=== PATIENT | female | born 1955 | race Caucasian/White ===

== ENCOUNTER → 2016-08-06 | Outpatient (CLI) | payer OTHER ==
[~2016-08-06] MED LIST: ATV1 PO; CLX20
--- NOTE | 2016-08-06 12:53 | DIAGNOSTIC IMAGING REPORT ---
RIGHT HIP UNILATERAL MIN 2 VIEWS CLINICAL HISTORY: Right hip pain status post fall. COMPARISON: Pelvis radiograph March 01, 2014. FINDINGS: Alignment of the right hip is anatomic. There is no acute fracture. There is no evidence for avascular necrosis. There is minimal joint space narrowing with mild osteophytosis of the right hip. IMPRESSION: 1. No acute fracture or dislocation of the right hip. 2. Mild osteoarthritis of the right hip. Electronically signed by: Braxton Gonzalez M.D. 08/06/2016 12:51 PM Dictated Date/Time: 08/06/2016 12:51 PM
== END | disposition home or self-care (01) ==
LOC: C.RDSM 10:47
PROVIDERS: ATTEND Family Medicine
DX: M25.551 Pain in right hip (principal)

== ENCOUNTER 2023-02-07 05:06 | Observation (INO) ==
--- NOTE | 2023-01-15 16:14 | PAT Medication Instructions ---
Medication Instructions Date of Service January 15, 2023 Home Medications citalopram 40 mg tablet 40 mg PO QAM lamotrigine 150 mg tablet (Lamictal) 150 mg PO QAM levothyroxine 50 mcg tablet 50 mcg PO QAM amlodipine 2.5 mg tablet 2.5 mg PO QAM Take morning of surgery With a small sip of water, OTHERWISE NOTHING TO EAT OR DRINK AFTER MIDNIGHT: citalopram 40 mg tablet 40 mg PO QAM lamotrigine 150 mg tablet (Lamictal) 150 mg PO QAM levothyroxine 50 mcg tablet 50 mcg PO QAM amlodipine 2.5 mg tablet 2.5 mg PO QAM Other Notes If you have any questions please call us at [phone] or [phone] or [phone] or [phone]
--- NOTE | 2023-01-23 14:08 | Anesthesiology Consultation ---
Date of Service January 23, 2023 Assessment & Plan (1) Encounter for pre-operative examination: - Case discussed in detail with Dr. Frias who advised patient is acceptable to proceed with surgery including as planned outpatient joint. - cardiology 01/16/23 [facility]: "...Preoperative cardiovascular evaluation, planned hip replacement...Coronary artery disease Nonspecific EKG changes leading to exercise stress echo was intermediate for inducible ischemia there was ischemic EKG changes with greater than [address] segment elevations in the inferior and anterior leads at peak rate, 03/24/2021. Mild Nonobstructive CAD per cardiac catheterization at [facility] on 03/29/2021 medical management recommended...no cardiac complaints currently. Denies chest pains, shortness of breath, tachy palpitations, syncope. Still remains very active but being limited due to pain in left hip...Preoperative cardiovascular evaluation prior to planned hip replacement: No cardiac contraindications to proceeding. Blood pressure is well managed. Has chronically abnormal EKG but unchanged from prior tracings. LV function preserved by prior echo, no valvular disease. Functional capacity above 5 Mets with no history of angina or congestive heart failure..." - Outpatient joint pathway: Per surgeon and patient, plan for outpatient joint program. Upon review of chart- patient is an acceptable candidate for Same Day Joint Program from anesthesia perspective pending perioperative course. Pending patient is motivated, has good support and surgeon's office completes Same Day Joint Program preop requirements- patient may proceed with outpatient [facility]. Chart Review Chart Review: Acceptable Risk for Surgery and Patient seen in Pre Admission Testing Teaching & Discussion Pre-Anesthesia Teaching/Discussion Notes: Instructed NPO after midnight before surgery, except medications with 15 cc of water. Medication instructions provided according to the PAT guidelines. History Surgery Operation Date: 02/07/23 07:00 Proposed Procedures p OP: Left Total Hip Arthroplasty - Jai Gray MD Height/Weight Height: 5 ft 2.5 in Weight: 78.018 kg Allergies Allergy/AdvReac Type Severity Reaction Status Date / Time pseudoephedrine Allergy Intermediate rash Verified 01/25/23 15:25 [From Sudafed] Sulfa (Sulfonamide Allergy Mild Rash, Unverified 01/15/23 12:48 Antibiotics) febrile shellfish derived Allergy Anaphylaxis Verified 01/15/23 12:48 red dye Allergy Intermediate rash Uncoded 01/25/23 15:25 Medications Home Medications Medication Instructions Recorded Confirmed Last Taken citalopram 40 mg tablet 40 mg PO QAM 03/29/21 01/15/23 Unknown lamotrigine 150 mg tablet 150 mg PO QAM 03/29/21 01/15/23 Unknown (Lamictal) levothyroxine 50 mcg tablet 50 mcg PO QAM 03/29/21 01/15/23 Unknown amlodipine 2.5 mg tablet 2.5 mg PO QAM 01/15/23 01/15/23 Unknown Past Medical History Medical History (Updated 01/25/23 @ 15:28 by Elis Walker PA-C) Bipolar disorder CAD (coronary artery disease) mild nonobstructive CAD Depression with anxiety Former smoker Hearing deficit BL MCKEON History of blood transfusion 7 y/o during tonsillectomy HTN (hypertension) controlled, stable per pt Hypothyroidism Otosclerosis Recovering alcoholic quit drinking 6 years ago Slow to wake up after anesthesia denies extended intubation or re-intubation Patient denies h/o stroke, seizures, heart attack, heart failure, DM, or blood clots. Exercise / Class Metabolic Activity II 4-5 Yardwork/Stairs/Walk up hill (denies chest discomfort or shortness of breath with 1 FOS) Past Surgical History Surgical History History of cardiac catheterization approx 2 years ago at [place] - no stents History of colonoscopy History of ear surgery History of sinus surgery History of toe surgery cyst removal great toe left History of tonsillectomy History of tubal ligation Past Anesthesia History Other (patient slow to wake, sister with PONV) History of PONV No Hx of PONV and No Hx of Motion Sickness Social History Smoking Status: Former smoker Do You Dip or Chew Tobacco: No Smoking End Date: 3 years ago Hx Alcohol Use: No (recovering alcoholic) Hx Substance Use: No substance use type: does not use Review of Systems Patient denies chest pain, shortness of breath, dyspnea on exertion, snoring, witnessed apneas, reflux, fever, chills, cough, wheezing, or palpitations. Physical Exam Vital Signs Vitals BP 105/69 P 81 TEMP 99 SP02 96% on RA RESP 17 Physical Patient resting comfortably in chair in NAD, alert and oriented, responding appropriately throughout visit Full cervical extension range of motion without pain TMD 3.5 finger breadths Mallampati Score 2 Dentition: multiple caps/crowns, denies chipped or loose teeth, implants or bridges Lungs: normal respiratory effort. Good air movement, clear throughout to auscultation, no adventitious breath sounds Cardiac: regular rate and rhythm, no murmurs noted Carotid arteries: negative bruit bilat Lab Results Anesthesia Preop Results Results Anesthesia Widget: WBC 6.86 K/ul (4.8-10.8) 01/23/23 Hgb 12.9 g/dl (12.0-16.0) 01/23/23 Hct 38.7 % (37.0-47.0) 01/23/23 Plt 299 K/uL (130-400) 01/23/23 Na 139 mmol/L (136-145) 01/23/23 K 4.6 mmol/L (3.5-5.1) 01/23/23 Cl 103 mmol/L (98-107) 01/23/23 CO2 31 mmol/L (21-32) 01/23/23 BUN 18 mg/dl (6-23) 01/23/23 Creat 0.75 mg/dl (0.6-1.2) 01/23/23 Glucose Level 90 mg/dl (70-99(Fasting)) 01/23/23 PT 10.9 Seconds (9.0-12.0) 01/23/23 PTT 28.5 Seconds (21.0-31.0) 01/23/23 INR 1.0 (0.9-1.1) 01/23/23 Urine Color Yellow 01/23/23 Urine Appearance Clear (Clear) 01/23/23 Urine pH 7.5 (4.5-7.5) 01/23/23 Urine Specific [place] 1.011 (1.000-1.030) 01/23/23 Urine Protein Negative (Negative) 01/23/23 Urine Glucose (UA) Negative (Negative) 01/23/23 Urine Ketones Negative (Negative) 01/23/23 Urine Blood Negative (Negative) 01/23/23 Urine Nitrite Negative (Negative) 01/23/23 Urine Bilirubin Negative (Negative) 01/23/23 Urine Urobilinogen Negative (Negative) 01/23/23 Urine Leukocyte Esterase Negative (Negative) 01/23/23 Blood Type O Positive 08/02/23 Antibody Screen NEGATIVE 01/23/23 Testing Electrocardiogram Date: 01/16/23 NSR, rate 76 bpm Septal infarct, age undetermined T wave abnormality, consider anterior ischemia No significant change vs 03/22/21 EKG Stress Test Date: 03/24/21 Exercise MPHR 86% METS 8.6 Indeterminate for inducible ischemia Ischemic EKG changes with greater than [address] segment elevations in the inferior and anterior leads at peak HR No inducible wall motion abnormalities on imaging EF 55-60% Grade II diastolic dysfunction No significant valvular pathology Cardiac Catheterization Date: 03/29/21 Coronary angiography: Catheters long 6 [place]an glide radial sheath, 5 [place] Left main: Left main is of normal caliber with mild physiologic taper at its origin and no calcification or obstruction Left anterior descending: Type II vessel which gives rise to 2 small diagonal branches in its proximal and 1 moderate size diagonal branch in its midportion. The apical segment of the left anterior descending is thin in caliber. The vessel has mild luminal irregularities Ramus intermedius: Large long trifurcating vessel without obstruction Left circumflex: Moderate size vessel, nondominant. It gives rise to a single obtuse marginal and single posterior lateral branch. Vessels are thin in calib er but without obstruction Right coronary artery: Moderately large dominant vessel. It gives rise to a sinoatrial branch at its origin, and two small right ventricular branches in its midportion. At the AV groove it gives rise to a long posterior descending artery along the AV groove a small first posterior ventricular branch and a long terminal posterior ventricular branch. Within the right coronary artery there is mild luminal irregularities with a focal 30% narrowing at the acute margin with mild ectasia Other Testing CT chest 04/05/22 Negative, benign appearance or behavior No new/unknown potentially significant incidental findings
--- NOTE | 2023-01-24 11:45 | History & Physical Report ---
Date of Service January 24, 2023 Assessment & Plan (1) Osteoarthritis of left hip: Plan: PRE-OP Diagnosis: Left hip osteoarthritis Planned Procedure: Left total hip arthroplasty Plan: Patient is scheduled to undergo this procedure at the [facility] following the outpatient total joint pathway with Dr. Gray on January. Risks and complications of the procedure such as: Infection, bleeding, pain, scarring, nerve blood vessel damage, weakness, wound problems, stiffness, incomplete relief of symptoms, hardware failure, hardware loosening, wear, fracture, tendon or ligament injury, dislocation, leg length inequality, blood clots, Embolism, heart attack, stroke and were explained to the patient at her visit today. Informed consent to perform the procedure was obtained. Patient also understands risks of proceeding with surgical intervention during the COVID-19 pandemic. Currently she is asymptomatic and has not been in contact with anyone positive for the virus recently. Patient has an appointment to meet with anesthesia later this afternoon and while there will obtain CBC with differential, complete metabolic panel, PT/INR, blood type and screen, urinalysis, urine culture and sensitivity, and a nasal culture for MRSA. Her EKG is up-to-date and we have received the report from her custom wood stair builder at [facility]. Patient will also need preoperative medical clearance from their custom wood stair builder Dr. Kent and primary care provider Raquel Brower. Patient states that she plans on doing in-home physical therapy for the first 1 to 2 weeks postoperatively. Patient states that she will most likely elect to do outpatient physical therapy at our PT clinic. Patient will need a walker, raised toilet seat, shower chair and a hip kit. During today's visit we reviewed the total hip packet as well as precautions. I provided paperwork to obtain a handicap placard for their vehicle. We discussed lectures offered by [facility] in regards to joint replacement surgery via Zoom. Patient was given prescriptions during today's visit for oxycodone, Zofran and Keflex. I recommended that she purchase 81 mg aspirin tablets to use twice daily for blood clot prevention. I would also like her to purchase Senokot and extra strength Tylenol. Patient will be scheduled for 2-week postoperative follow-up visit with myself on February 22. At that visit we will Provide the patient with an order for outpatient physical therapy and rehab protocol. Patient verbalizes understanding of all information provided during today's visit. She thanks for the care that she received. If she has questions or concerns that should arise prior to her surgery, she will contact clinic. This chart was completed utilizing [employer] voice recognition software. Grammatical errors, random word insertions, pronoun errors, and in complete sentences are an occasional consequence of the system. Any questions or concerns about the content, text, or information contained within the body of this dictation should be addressed directly to the physician for clarification. History of Present Illness Chief Complaint: Chief Complaint: Left hip pain Primary Care Provider: Yokasta Batista DO History of Present Illness (including history relevant to procedure): This 67-year-old female presents today for her preoperative history and physical. Patient complains of a approximate 6-year history of persistent right hip pain that initially waxed and waned but has now become constant. Patient has failed conservative management with physical therapy the use of nonsteroidal agents strength Tylenol. She states the pain is localized to her groin area with severe limitations with range of motion. She states it is starting to affect her ability to ambulate and play with her grandchildren. Review Of Systems: A 12 point review of systems is performed and is unremarkable except for those things stated in the HPI and past medical history. Past Medical History: Problems: Arthritis of left hip Thyroid disease Left hamstring muscle strain Hip pain Knee pain Anxiety Bipolar disorder Procedure History Procedure Procedure Date Comments foot Cardiac catheterization Tubal ligation Sinus surgery Bilateral stapedectomy - left Allergies and Sensitivities: shellfish sulfADIAZINE Current Home Meds: (Last Updated 01/23 13:49) amLODIPine (amLODIPine 2.5 mg oral tablet) TAKE ONE TABLET BY MOUTH EVERY MORNING cephalexin (cephalexin 500 mg oral capsule) 500 mg PO tid post op infection prophylaxis citalopram (citalopram 40 mg oral tablet) 40 mg PO Daily laMOTRIGine (lamotrigine 150 mg oral tablet) 150 mg PO Daily levothyroxine (levothyroxine 25 mcg (0.025 mg) oral tablet) 25 mcg PO Daily melatonin (melatonin 3 mg oral tablet) 3 mg PO qhs PRN: Insomnia naproxen (naproxen 500 mg oral tablet) 500 mg PO bid PRN: as needed for pain ondansetron (Zofran 4 mg oral tablet) 4 mg PO q8h post op nausea oxyCODONE (oxyCODONE 5 mg oral tablet) 5 mg PO q4h PRN: as needed for pain post op pain control Initial Wt: 01/23 78.0 kg 172 lb Allergies Allergy/AdvReac Type Severity Reaction Status Date / Time Sulfa (Sulfonamide Allergy Mild Rash, Unverified 01/15/23 12:48 Antibiotics) febrile shellfish derived Allergy Anaphylaxis Verified 01/15/23 12:48 Home Medications Medication Instructions Recorded Confirmed Type citalopram 40 mg tablet 40 mg PO QAM 03/29/21 01/15/23 History lamotrigine 150 mg tablet 150 mg PO QAM 03/29/21 01/15/23 History (Lamictal) levothyroxine 50 mcg tablet 50 mcg PO QAM 03/29/21 01/15/23 History amlodipine 2.5 mg tablet 2.5 mg PO QAM 01/15/23 01/15/23 History Past Med/Surg History Medical History Bipolar disorder Depression with anxiety Former smoker Hearing deficit BL MCKEON History of blood transfusion 7 y/o during tonsillectomy HTN (hypertension) controlled, stable per pt Hypothyroidism Otosclerosis Recovering alcoholic quit drinking 6 years ago Slow to wake up after anesthesia denies extended intubation or re-intubation Surgical History History of cardiac catheterization approx 2 years ago at [place] - no stents History of colonoscopy History of ear surgery History of sinus surgery History of toe surgery cyst removal great toe left History of tonsillectomy History of tubal ligation Social History Smoking Status: Former smoker Second Hand Exposure: No; Do You Dip or Chew Tobacco: No; Hx Alcohol Use: No (recovering alcoholic) Hx Substance Use: No Preferred Language: Vietnamese Communication Ability: Effective Clinical Audiologist Required: No Beliefs That Will Affect Care: None Current Living Situation: Spouse Feels Safe at Home: Yes Assistive Devices: Cane, Glasses and Hearing Aid - Bilateral Review of Systems All systems reviewed & are unremarkable except as noted in Subjective Physical Exam Physical Exam: Physical Exam: (relevant to the procedure, including heart and lung evaluation) General: Alert and oriented x3 with proper grooming and hygiene Eyes: Pupils are equal react to light with accommodation. Extraocular movements are intact Throat: Posterior pharynx is clear with absence of edema, erythema or exudate. Dentition is appropriate Cardiac: Regular rate and rhythm with no murmurs or gallops appreciated Lungs: Clear to auscultation throughout with no wheezing, rales or rhonchi Abdomen: Mildly obese, nondistended, nontender with NABS Extremities: Left hip; flexion is limited to 110 degrees with pain. Logroll testing causes referred pain to the groin. Stinchfield test positive. Patient has tenderness to palpation in the groin area. Internal rotation is limited to 0 degrees and external rotation to 55 degrees. She is neurovascular intact in the left lower extremity. Neuro: Cranial nerves II through XII are intact with no motor or sensory deficit Skin: Normal in appearance with no open skin areas or discharge Results & Data Diagnostic Findings Studies of (relevant to the procedure): AP pelvis, false profile and cross table lateral views of the pelvis with evidence of b/l hip osteoarthritis, left worst than right
[2023-02-07] MEDS ORDERED: FAMOTIDINE 20 MG TAB PO SCH (06:00)
[2023-02-07] MEDS ORDERED: TRANEXAMIC ACID 1,000 MG **IV Pre-op IV SCH (06:00)
[2023-02-07] MEDS ORDERED: LR 500ML BOLUS, THEN 15ML/HR IV SCH (06:00)
[2023-02-07] MEDS ORDERED: ceFAZolin 2000MG 2,000 MG/15 ML SYR IV SCH (06:00)
[2023-02-07] MEDS ORDERED: TRANEXAMIC ACID 1,000 MG **IV Intra-op IV SCH (06:00)
[2023-02-07] MEDS ORDERED: dexAMETHasone 4 MG TAB PO SCH (06:00)
[2023-02-07] MEDS ORDERED: traMADol HCL 50 MG TABLET PO SCH (06:00)
[2023-02-07] MEDS ORDERED: Scopolamine 1 MG TDSY TD SCH (06:00)
[2023-02-07] MEDS ORDERED: ACETAMINOPHEN 500 MG TAB PO SCH (06:00)
[2023-02-07] MEDS ORDERED: ROPIVACAINE 0.5% HCL/PF 150 MG, BUPIVACAINE 0.75% MPF 20 ML, EPINEPHrine 0.15 MG, Ketor... INFIL SCH (06:00)
[2023-02-07] MEDS ORDERED: LR 60ML/HR IV SCH (06:00)
[2023-02-07] MEDS ORDERED: MEPIVACAINE HCL 1.5% 30 ML VIAL ONE (06:22)
--- NOTE | 2023-02-07 06:36 | History & Physical Bridge Note ---
Date of Service February 07, 2023 History & Physical Bridge Note I have examined the patient, reviewed the History & Physical and in the interval since the performance of the History & Physical I have noted the following changes of clinical significance: no changes noted
[2023-02-07] MEDS ORDERED: ORTHO JOINT ANESTHETIC ONE (06:40)
[2023-02-07] MEDS ORDERED: MIDAZOLAM HCL 1 MG/ML 2ML VIAL ONE (06:45)
[2023-02-07] MEDS ORDERED: PROPOFOL IV EMULSION 10 MG/ML 20 ML VIAL IV ONE ×2 (06:53→08:32)
[2023-02-07] MEDS ORDERED: BUPIVACAINE 0.5 % 5 MG/1 ML PF 10ML VIAL ONE (07:08)
[2023-02-07] MEDS ORDERED: ATROPINE SULFATE 0.1 MG/ML 10ML SYR IV PRN (07:32)
[2023-02-07] MEDS ORDERED: ePHEDrine sulfate 50 MG/ML AMP IV PRN (07:32)
[2023-02-07] MEDS ORDERED: ONDANSETRON INJ 2 MG/ML 2 ML VIAL IV PRN ×2 (07:32→08:54)
--- NOTE | 2023-02-07 08:52 | Operative Report ---
Post Operative Report Pre & Post Diagnosis Operation Date: 02/07/23 07:00 Pre-Op Diagnosis: Left Hip Degenerative Joint Disease Post-Op Diagnosis: Left Hip Degenerative Joint Disease I identified the patient and participated in the time-out.: Yes Procedure Operation Date: 02/07/23 07:00 Actual Procedures p Left Total Hip Arthroplasty(Left) - Jai Gray MD Surgeon Jai Gray MD Poultry Farm Worker GERSON Milton PA-C. No resident or fellow was available to assist. Estimated Blood Loss 100 Findings Consistent with Post-Op Diagnosis Specimens Right femoral head Anesthesia Type Spinal MAC Complications none Disposition Disposition: Recovery Room Indications 68-year-old female with left hip arthritis refractory to conservative management. X-rays demonstrate severe joint space narrowing and marginal osteophyte formation. I do long discussion with her about the risks and benefits of surgery, alternatives to surgery, and expected outcomes. After reviewing all these she elected to proceed with surgery. All questions were answered. Informed consent was signed. Description of Procedure Patient was identified in the preoperative holding area where the surgical site, Left hip, was marked. A spinal anesthetic was placed, then the patient was brought back to the main operating room, placed in the operating table and moved into the lateral decubitus position. Axillary roll was placed. All bony prominences were padded. Perioperative antibiotics and tranexamic acid 1 gram IV were administered. Operative extremity was prepped and draped in the normal sterile fashion. Prior to incision a multidisciplinary timeout was called. All in the room were in agreement. We began by making an approximately 20 cm long incision for a posterior approach to the hip. We dissected down through subcutaneous tissues to the level of the fascia. The fascia was incised in line with the incision. Charnley bow was placed. Fatty tissue was reflected posteriorly off the back of the greater trochanter to expose the piriformis and short external rotators of the hip. The piriformis and short external rotators were dissected off the posterior aspect of the hip. A box cut was made in the capsule. Inferior hip capsule was released off the femur. The femoral head was dislocated. The femoral neck cut was made at our preoperative template. The acetabulum was then exposed. The labrum was sharply excised. Contents of the cotyloid fossa were removed with electrocautery. We then began reaming at a size 8 mm less than our preoperative template. We reamed up by [address] the way up to a size 50 mm cup. This gave us good bleeding cancellus bone circumferentially. The acetabulum was then irrigated out and dried. The real Milburn Gription cup was then impacted down into position with 45 degrees of lateral opening and 25 degrees of anteversion. A single cancellous bone screw was placed up into the ilium. Excellent fixation was obtained. A trial liner for a 32 mm femoral head was then placed. Next we turned our attention to the femur. The lateral neck was removed with a box osteotome. Intramedullary guide was used followed by the lateralizing reamer. We then reamed up to a size 4 [place] stem. We then broached all the way up to a size 4. We began trialing with a standard offset neck and a +5 head. Hip was reduced. Leg lengths were symmetric. The hip was stable in extension and external rotation, and stable in the sleeper position. At 90 degrees of hip flexion the hip could be internally rotated 45 degrees before levering out of the cup. I was very happy with the stability exam. Therefore the hip was dislocated and the femoral trial was removed. The acetabulum was re-exposed, and the trial liner was removed. An Altrx polyethylene liner for a 32 mm femoral head was then impacted into the shell. The locking mechanism was checked to ensure that it had engaged which it had. The femur was re-exposed. The femoral canal was irrigated and dried. The real size [] offset [place] femoral stem was opened up. This was impacted down into position. It sat at the same level as the femoral trial. Therefore the 32 mm ceramic femoral head with +5 mm offset was opened up and gently impacted down onto the trunnion. The hip was atraumatically reduced. Another 1 gram of IV tranexamic acid was started prior to closure. The wound was irrigated out with sterile Betadine solution. The periarticular injection cocktail was then placed. The short external rotators, piriformis, and posterior capsule were repaired through drill holes in the greater trochanter using #2 Vicryl. The fascia was run with a looped #1 PDS. The subcutaneous layer was closed with #1 PDS. The dermal layer was closed with 2-0 Vicryl. Zip line was used for the skin followed by a Silverlon dressing. A compressive dressing was then placed. The patient was then rolled supine. Leg lengths were rechecked and were symmetric. An abduction pillow was placed. Sedation was lifted and the patient was transferred to the recovery room in stable condition. Summary of implants: Depuy Milburn Gription Acetabular Shell Sector Cup, 50 mm outer diameter Milburn Cancellous bone screw, 6.5 x 40 mm Walls hole eliminator Milburn Altrx Polyethylene Acetabular Liner, Neutral, with a 32 mm inner diameter DePuy [place] Femoral stem with [place], 12/14 taper, size 4 standard offset 32 mm ceramic femoral head with +5 offset Postoperative course: Patient will be admitted overnight from the recovery room. Patient will be weightbearing as tolerated with posterior hip precautions. Aspirin for DVT prophylaxis I attest to the content of the Intraoperative Record and any orders documented therein. Any exceptions are noted below.
[2023-02-07] MEDS ORDERED: MAGNESIUM HYDROXIDE SUSP 30 ML UDC PO PRN (08:54)
[2023-02-07] MEDS ORDERED: METOCLOPRAMIDE HCL INJ 5 MG/ML 2 ML VIAL IV PRN (08:54)
[2023-02-07] MEDS ORDERED: NALOXONE HCL 0.4 MG/1 ML VIAL/CARP IV PRN (08:54)
[2023-02-07] MEDS ORDERED: diphenhydrAMINE 50 MG/ML VIAL IV PRN (08:54)
[2023-02-07] MEDS ORDERED: bisacodyL 10 MG SUPP PR PRN (08:54)
[2023-02-07] MEDS ORDERED: ALUMINUM/MAGNESIUM SUSP 30 ML UDC PO PRN (08:54)
--- NOTE | 2023-02-07 08:54 | Operative Report ---
Post Operative Report Pre & Post Diagnosis Operation Date: 02/07/23 07:00 Pre-Op Diagnosis: Left Hip Degenerative Joint Disease Post-Op Diagnosis: Left Hip Degenerative Joint Disease I identified the patient and participated in the time-out.: Yes Procedure Operation Date: 02/07/23 07:00 Actual Procedures p Left Total Hip Arthroplasty(Left) - Jai Gray MD Surgeon Jai Gray MD Website Project Manager GERSON Milton PA-C. No resident or fellow was available to assist. Estimated Blood Loss 100 Findings Consistent with Post-Op Diagnosis Specimens femoral head Description of Procedure I was present during the entire case assisting with positioning, prepping, draping, wound retraction, wound closure, dressing and abduction pillow plac ement. No fellow present. Please see Dr. Gray procedure note for specifics of the case. I attest to the content of the Intraoperative Record and any orders documented therein. Any exceptions are noted below.
[2023-02-07] MEDS: HYDROmorphone INJ 1 MG/ML SYRINGE IV PRN ×3 (09:13→09:36)
--- NOTE | 2023-02-07 09:31 | XRay Report ---
AP PELVIS History: Left total hip arthroplasty. Degenerative arthritis. Postop. FINDINGS: The patient is status post a left total hip arthroplasty. The hardware is intact. No fractu re or dislocation. Moderate to severe osteoarthritis noted within the right hip. IMPRESSION: Left total hip arthroplasty. No evidence for hardware complication. ACT 112: Negative or not required by law. Electronically signed by: Marco Churchill M.D. 02/07/2023 9:30 AM
[2023-02-07] MEDS: SODIUM CHLORIDE 0.9% 1000ML 1,000 ML IV SCH ×3 (11:41→21:52)
[2023-02-07] MEDS: DOCUSATE SODIUM 100 MG CAP PO SCH ×2 (11:43→19:28)
[2023-02-07] MEDS: MULTIVITAMIN TAB PO SCH (11:43)
[2023-02-07] MEDS: amLODIPine BESYLATE 5 MG TAB PO SCH (11:52)
[2023-02-07] MEDS: LEVOTHYROXINE SODIUM 50 MCG TABLET PO SCH (11:52)
[2023-02-07] MEDS: CITALOPRAM 40 MG TAB PO SCH (11:52)
[2023-02-07] MEDS: lamoTRIgine 100 MG TAB PO SCH (11:52)
[2023-02-07] MEDS: KETOROLAC TROMETHAMINE 15 MG/ML VIAL IV SCH ×2 (11:56→17:17)
--- NOTE | 2023-02-07 12:34 | Anesthesiology Progress Note ---
Date of Service February 07, 2023 Anesthesia Post Procedure Vital Signs Vital Signs: Temp Pulse Pulse Resp BP Pulse Ox O2 Del Method 02/07/23 12:10 36.6 C 64 16 113/74 99 Nasal Cannula 02/07/23 11:39 36.6 C 60 16 93/64 L 99 Nasal Cannula 02/07/23 11:10 36.4 C L 56 L 18 92/56 L 97 Nasal Cannula 02/07/23 11:00 49 L 19 102/59 L 98 Nasal Cannula 02/07/23 10:50 57 L 20 107/59 L 98 Nasal Cannula 02/07/23 10:40 58 L 13 101/63 97 Nasal Cannula 02/07/23 10:30 36.4 C L 64 12 95/61 L 97 Nasal Cannula 02/07/23 10:20 64 18 103/58 L 98 Nasal Cannula 02/07/23 10:10 67 15 87/67 L 96 Nasal Cannula 02/07/23 10:00 60 12 88/59 L 97 Nasal Cannula 02/07/23 09:50 36.5 C 55 L 14 97/62 L 99 Nasal Cannula 02/07/23 09:40 61 13 96/55 L 99 Nasal Cannula 02/07/23 09:30 53 L 16 114/61 97 Nasal Cannula 02/07/23 09:20 51 L 16 101/57 L 98 Oxymask 02/07/23 09:10 54 L 13 98/59 L 100 Oxymask 02/07/23 09:02 36.2 C L 57 L 12 92/58 L 100 Oxymask 02/07/23 05:43 36.6 C 64 18 109/69 95 Room Air O2 Flow Rate 02/07/23 12:10 2 02/07/23 11:39 2 02/07/23 11:10 2 02/07/23 11:00 2 02/07/23 10:50 2 02/07/23 10:40 2 02/07/23 10:30 2 02/07/23 10:20 2 02/07/23 10:10 2 02/07/23 10:00 2 02/07/23 09:50 2 02/07/23 09:40 2 02/07/23 09:30 2 02/07/23 09:20 2 02/07/23 09:10 4 02/07/23 09:02 6 02/07/23 05:43 Pain Intensity Left Hip: Pain Intensity: 3 Posterior Head: Pain Intensity: 2 Left Neck: Pain Intensity: 2 Transfer of Care Handoff Completed per policy Notes Mental Status: alert / awake / arousable and participated in evaluation Nausea / Vomiting: adequately controlled Pain: adequately controlled Airway Patency, RR, SpO2: stable & adequate BP & HR: stable & adequate Hydration State: stable & adequate Neuraxial Anesthesia: was administered and sensory block is resolving Anesthetic Complications: no major complications apparent and Pt Satisfied with anesthetic care
[2023-02-07] MEDS: ACETAMINOPHEN 500 MG TAB PO SCH (13:13)
[2023-02-07] MEDS: oxyCODONE HCL IR 5 MG TAB (IMMEDIATE RELEASE) PO PRN ×2 (13:48→19:26)
[2023-02-07] MEDS: Scopolamine CHECK PATCH PLACEMENT SCH (14:49)
[2023-02-07] MEDS: ceFAZolin 2000MG 2,000 MG/15 ML SYR IV SCH (14:49)
[2023-02-07] MEDS ORDERED: TRANEXAMIC ACID / 0.7% NACL 1,000 MG/100 ML BAG IV SCH (15:00)
[2023-02-07] MEDS: MoRPHine SULFATE 4 MG/ML 1 ML CARP\\VIAL IV PRN ×2 (16:37→22:09)
--- NOTE | 2023-02-07 17:12 | Orthopedic Progress Note ---
Date of Service February 07, 2023 Assessment & Plan (1) Status post total hip replacement, left: Plan: Patient is doing well. I reassured her that the amount of pain she is experiencing is normal after hip replacement. Additional order was given to nursing staff for IV morphine as needed. Otherwise, routine postoperative care. PT OT tomorrow. My physician placement assistant will see her in the morning. plan on discharge home tomorrow after physical therapy. Admission and Anticipated Discharge Date Admission Date: February 07, 2023 Subjective Patient seen on afternoon rounds. She reports she was able to get out of bed and walk to the bathroom but she had increased pain since that time. Denies fevers chills chest pain shortness of breath. She has been able to tolerate an oral diet. Physical Exam Physical Exam: On exam her dressing is clean dry and intact. Her abduction pillow is in place. She is able to wiggle her toes and dorsi and plantarflex her ankle. She reports sensation intact to light touch in the dorsal and plantar aspects of the left foot. Results & Data Vital Signs (Past 12 Hours) Vital Signs Temp Pulse Pulse Resp BP Pulse Ox O2 Del Method 02/07/23 11:30 Nasal Cannula 02/07/23 14:10 36.7 C 60 16 99/64 L 95 Room Air 02/07/23 13:10 36.6 C 60 16 95/60 L 99 Nasal Cannula 02/07/23 12:10 36.6 C 64 16 113/74 99 Nasal Cannula 02/07/23 11:39 36.6 C 60 16 93/64 L 99 Nasal Cannula 02/07/23 11:10 36.4 C L 56 L 18 92/56 L 97 Nasal Cannula 02/07/23 11:00 49 L 19 102/59 L 98 Nasal Cannula 02/07/23 10:50 57 L 20 107/59 L 98 Nasal Cannula 02/07/23 10:40 58 L 13 101/63 97 Nasal Cannula 02/07/23 10:30 36.4 C L 64 12 95/61 L 97 Nasal Cannula 02/07/23 10:20 64 18 103/58 L 98 Nasal Cannula 02/07/23 10:10 67 15 87/67 L 96 Nasal Cannula 02/07/23 10:00 60 12 88/59 L 97 Nasal Cannula 02/07/23 09:50 36.5 C 55 L 14 97/62 L 99 Nasal Cannula 02/07/23 09:40 61 13 96/55 L 99 Nasal Cannula 02/07/23 09:30 53 L 16 114/61 97 Nasal Cannula 02/07/23 09:20 51 L 16 101/57 L 98 Oxymask 02/07/23 09:10 54 L 13 98/59 L 100 Oxymask 02/07/23 09:02 36.2 C L 57 L 12 92/58 L 100 Oxymask 02/07/23 05:43 36.6 C 64 18 109/69 95 Room Air O2 Flow Rate 02/07/23 11:30 2 02/07/23 14:10 02/07/23 13:10 1 02/07/23 12:10 2 02/07/23 11:39 2 02/07/23 11:10 2 02/07/23 11:00 2 02/07/23 10:50 2 02/07/23 10:40 2 02/07/23 10:30 2 02/07/23 10:20 2 02/07/23 10:10 2 02/07/23 10:00 2 02/07/23 09:50 2 02/07/23 09:40 2 02/07/23 09:30 2 02/07/23 09:20 2 02/07/23 09:10 4 02/07/23 09:02 6 02/07/23 05:43 Diagnostic Findings I reviewed her postop x-rays that show hardware in good position with no evidence of complication.
[2023-02-07] MEDS ORDERED: SENNA 8.6 MG TAB PO SCH (21:00)
[2023-02-08] MEDS: ceFAZolin 2000MG 2,000 MG/15 ML SYR IV SCH (00:05)
[2023-02-08] MEDS: ACETAMINOPHEN 500 MG TAB PO SCH ×2 (00:05→05:32)
[2023-02-08] MEDS: Scopolamine CHECK PATCH PLACEMENT SCH ×2 (00:06→07:56)
[2023-02-08] MEDS: KETOROLAC TROMETHAMINE 15 MG/ML VIAL IV SCH ×2 (00:08→05:33)
[2023-02-08] MEDS: oxyCODONE HCL IR 5 MG TAB (IMMEDIATE RELEASE) PO PRN ×2 (05:31→09:29)
[2023-02-08] MEDS: LEVOTHYROXINE SODIUM 50 MCG TABLET PO SCH (05:34)
[2023-02-08 07:03] LABS: Basophils # (auto) 0.01 K/uL (0-0.2); Basophils % (auto) 0.1 %; Eosinophils # (auto) 0.02 K/uL (0-0.50); Eosinophils % (auto) 0.2 %; Hematocrit (blood only) 27.6 % (37.0-47.0); Hemoglobin 9.2 g/dl (12.0-16.0); Immature Granulocytes # (auto) 0.03 K/uL (0.01-0.20); Immature Granulocytes % (auto) 0.4 %; Lymphocytes # (auto) 0.94 K/uL (1.2-3.4); Lymphocytes % (auto) 11.6 %; Mean Corpuscular Hemoglobin 27.9 pg (25.0-34.0); Mean Corpuscular Hgb Conc 33.3 g/dL (32.0-36.0); Mean Corpuscular Volume 83.6 fL (80.0-100.0); Mean Platelet Volume 10.5 fL (9.4-12.4); Monocytes # (auto) 0.56 K/uL (0.11-0.59); Monocytes % (auto) 6.9 %; Neutrophils # (auto) 6.55 K/uL (1.40-6.50); Neutrophils % (auto) 80.8 %; Platelet Count 212 K/uL (130-400); RDW Coefficient of Variation 14.8 % (11.5-14.5); RDW Standard Deviation 45.5 fL (36.4-46.3); White Blood Count 8.11 K/ul (4.8-10.8)
[2023-02-08 07:57] LABS: BUN Creatinine Ratio 27.6 (10-20); Calcium 8.7 mg/dl (8.6-10.3); Creatinine Clr Calc Pharmacy 71.5 ml/min; Est GFR (African American) 94.1 ml/min; Est GFR (Non-African American) 81.2 ml/min; Potassium 4.4 mmol/L (3.5-5.1)
[2023-02-08] MEDS: lamoTRIgine 100 MG TAB PO SCH (07:57)
[2023-02-08] MEDS: CITALOPRAM 40 MG TAB PO SCH (07:57)
[2023-02-08] MEDS: MULTIVITAMIN TAB PO SCH (07:57)
[2023-02-08] MEDS: DOCUSATE SODIUM 100 MG CAP PO SCH (07:58)
[2023-02-08] MEDS: amLODIPine BESYLATE 5 MG TAB PO SCH (07:59)
[2023-02-08] MEDS ORDERED: dexAMETHasone 4 MG TAB PO SCH (08:00)
[2023-02-08] MEDS ORDERED: ASPIRIN 81 MG ECTAB PO SCH (09:00)
--- NOTE | 2023-02-08 09:11 | Orthopedic Progress Note ---
Date of Service February 08, 2023 Assessment & Plan (1) Status post total hip replacement, left: Plan: Total hip precautions reviewed Weightbearing as tolerated with walker assistance Abduction pillow use x6 weeks Ice with easy wrap Pain control with p.o. medication DVT prophylaxis with PER stockings and aspirin Plan is to discharge home today with in-home physical therapy for the first 2 weeks postoperatively Keep Silverlon dressing in place until follow-up Follow-up at [facility] orthopedics as previously scheduled With questions contact our clinic at [phone] Admission and Anticipated Discharge Date Admission Date: February 07, 2023 Subjective This 68-year-old female is day 1 status post left total hip arthroplasty. Patient states she is doing very well. She states that her pain is well controlled with the prescription oxycodone. She states that she does have her postoperative medications at home. She was initially scheduled to begin outpatient total joint but decided to stay overnight prior to surgery. She states she has been able to get out of bed and use the restroom without issues. She states that she is a little nauseous this morning and was given some IV antinausea medication which was effective. Currently she denies chest pain, shortness of breath, fever, chills, sweats, vomiting, diarrhea or difficulty voiding. She also has no complaint of numbness or tingling in the left lower extremity. Review of Systems Review of Systems: All systems reviewed & are unremarkable except as noted in Subjective Physical Exam Physical Exam: Left hip: Outer dressing was removed. Silverlon is clean dry and intact and left in place. Patient is able to perform an active straight leg raise test. She is able to actively dorsi and plantarflex her foot without issue. She has no pain with logroll testing. She experiences no pain with light passive hip flexion near 90 degrees as well as with light passive internal and external hip rotation. Her quad strength is 3+ out of 5. She is neurovascular intact in the left lower extremity. Results & Data Vital Signs (Past 12 Hours) Vital Signs Temp Pulse Resp BP Pulse Ox O2 Del Method 02/08/23 07:21 36.5 C 64 16 102/64 94 Room Air 02/08/23 02:34 36.6 C 61 18 91/54 L 90 Room Air 02/07/23 23:23 36.4 C L 53 L 16 99/64 L 94 Room Air Diagnostic Findings Laboratory Results WBC 8.11 K/ul (4.8-10.8) 02/08/23 06:24 RBC 3.30 M/uL (4.20-5.40) L 02/08/23 06:24 Hgb 9.2 g/dl (12.0-16.0) L 02/08/23 06:24 Hct 27.6 % (37.0-47.0) L 02/08/23 06:24 MCV 83.6 fL (80.0-100.0) 02/08/23 06:24 MCH 27.9 pg (25.0-34.0) 02/08/23 06:24 MCHC 33.3 g/dL (32.0-36.0) 02/08/23 06:24 RDW Std Deviation 45.5 fL (36.4-46.3) 02/08/23 06:24 RDW Coeff of Renetta 14.8 % (11.5-14.5) H 02/08/23 06:24 Plt Count 212 K/uL (130-400) 02/08/23 06:24 MPV 10.5 fL (9.4-12.4) 02/08/23 06:24 Immature Gran % (Auto) 0.4 % 02/08/23 06:24 Neut % (Auto) 80.8 % 02/08/23 06:24 Lymph % (Auto) 11.6 % 02/08/23 06:24 [place] % (Auto) 6.9 % 02/08/23 06:24 Eos % (Auto) 0.2 % 02/08/23 06:24 Baso % (Auto) 0.1 % 02/08/23 06:24 Neut # (Auto) 6.55 K/uL (1.40-6.50) H 02/08/23 06:24 Lymph # (Auto) 0.94 K/uL (1.2-3.4) L 02/08/23 06:24 [place] # (Auto) 0.56 K/uL (0.11-0.59) 02/08/23 06:24 Eos # (Auto) 0.02 K/uL (0-0.50) 02/08/23 06:24 Baso # (Auto) 0.01 K/uL (0-0.2) 08/18/23 06:24 Immature Gran # (Auto) 0.03 K/uL (0.01-0.20) 02/08/23 06:24 Sodium 139 mmol/L (136-145) 02/08/23 06:24 Potassium 4.4 mmol/L (3.5-5.1) 02/08/23 06:24 Chloride 107 mmol/L (98-107) 02/08/23 06:24 Carbon Dioxide 29 mmol/L (21-32) 02/08/23 06:24 Anion Gap 3 (3-11) 02/08/23 06:24 BUN 21 mg/dl (6-23) 02/08/23 06:24 Creatinine 0.76 mg/dl (0.6-1.2) 02/08/23 06:24 Est Cr Clr Drug Dosing 71.5 ml/min 02/08/23 06:24 Est GFR ( Amer) 94.1 ml/min 02/08/23 06:24 Est GFR (Non-Af Amer) 81.2 ml/min 02/08/23 06:24 BUN/Creatinine Ratio 27.6 (10-20) H 02/08/23 06:24 Glucose 119 mg/dl (70-99(Fasting)) H 02/08/23 06:24 Calcium 8.7 mg/dl (8.6-10.3) 02/08/23 06:24 Impressions Pelvis X-Ray 02/07/23 08:54 AP PELVIS History: Left total hip arthroplasty. Degenerative arthritis. Postop. FINDINGS: The patient is status post a left total hip arthroplasty. The hardware is intact. No fracture or dislocation. Moderate to severe osteoarthritis noted within the right hip. IMPRESSION: Left total hip arthroplasty. No evidence for hardware complication. ACT 112: Negative or not required by law. Electronically signed by: Marco Churchill M.D. 02/07/2023 9:30 AM
--- NOTE | 2023-02-08 09:16 | Discharge Summary ---
Date of Service February 08, 2023 Admission HPI Per Admitting Provider History of Present Illness (including history relevant to procedure): This 67-year-old female presents today for her preoperative history and physical. Patient complains of a approximate 6-year history of persistent right hip pain that initially waxed and waned but has now become constant. Patient has failed conservative management with physical therapy the use of nonsteroidal agents strength Tylenol. She states the pain is localized to her groin area with severe limitations with range of motion. She states it is starting to affect her ability to ambulate and play with her grandchildren. Review Of Systems: A 12 point review of systems is performed and is unremarkable except for those things stated in the HPI and past medical history. Past Medical History: Problems: Arthritis of left hip Thyroid disease Left hamstring muscle strain Hip pain Knee pain Anxiety Bipolar disorder Procedure History Procedure Procedure Date Comments foot Cardiac catheterization Tubal ligation Sinus surgery Bilateral stapedectomy - left Allergies and Sensitivities: shellfish sulfADIAZINE Current Home Meds: (Last Updated 01/23 13:49) amLODIPine (amLODIPine 2.5 mg oral tablet) TAKE ONE TABLET BY MOUTH EVERY MORNING cephalexin (cephalexin 500 mg oral capsule) 500 mg PO tid post op infection prophylaxis citalopram (citalopram 40 mg oral tablet) 40 mg PO Daily laMOTRIGine (lamotrigine 150 mg oral tablet) 150 mg PO Daily levothyroxine (levothyroxine 25 mcg (0.025 mg) oral tablet) 25 mcg PO Daily melatonin (melatonin 3 mg oral tablet) 3 mg PO qhs PRN: Insomnia naproxen (naproxen 500 mg oral tablet) 500 mg PO bid PRN: as needed for pain ondansetron (Zofran 4 mg oral tablet) 4 mg PO q8h post op nausea oxyCODONE (oxyCODONE 5 mg oral tablet) 5 mg PO q4h PRN: as needed for pain post op pain control Initial Wt: 01/23 78.0 kg 172 lb Admission Exam Per Admitting Provider Physical Exam: (relevant to the procedure, including heart and lung evaluation) General: Alert and oriented x3 with proper grooming and hygiene Eyes: Pupils are equal react to light with accommodation. Extraocular movements are intact Throat: Posterior pharynx is clear with absence of edema, erythema or exudate. Dentition is appropriate Cardiac: Regular rate and rhythm with no murmurs or gallops appreciated Lungs: Clear to auscultation throughout with no wheezing, rales or rhonchi Abdomen: Mildly obese, nondistended, nontender with NABS Extremities: Left hip; flexion is limited to 110 degrees with pain. Logroll testing causes referred pain to the groin. Stinchfield test positive. Patient has tenderness to palpation in the groin area. Internal rotation is limited to 0 degrees and external rotation to 55 degrees. She is neurovascular intact in the left lower extremity. Neuro: Cranial nerves II through XII are intact with no motor or sensory deficit Skin: Normal in appearance with no open skin areas or discharge Principal Diagnosis Left Hip Osteoarthritis Discharge Exam Left hip: Outer dressing was removed. Silverlon is clean dry and intact and left in place. Patient is able to perform an active straight leg raise test. She is able to actively dorsi and plantarflex her foot without issue. She has no pain with logroll testing. She experiences no pain with light passive hip flexion near 90 degrees as well as with light passive internal and external hip rotation. Her quad strength is 3+ out of 5. She is neurovascular intact in the left lower extremity. Discharge Data Allergies Allergy/AdvReac Type Severity Reaction Status Date / Time red dye Allergy Rash Verified 02/07/23 05:41 shellfish derived Allergy Rash Verified 02/07/23 05:41 Sulfa (Sulfonamide Allergy Rash Verified 02/07/23 05:41 Antibiotics) Procedures Performed Operation Date: 02/07/23 07:00 Actual Procedures p Left Total Hip Arthroplasty(Left) - Jai Gray MD Hospital Course (1) Status post total hip replacement, left: Patient had an uneventful overnight stay following total hip replacement. She is anxious to be discharged home later today. She is set up with in-home physical therapy for the first 2 weeks postoperatively. Total hip precautions reviewed Weightbearing as tolerated with walker assistance Abduction pillow use x6 weeks Ice with easy wrap Pain control with p.o. medication DVT prophylaxis with PER stockings and aspirin Plan is to discharge home today with in-home physical therapy for the first 2 weeks postoperatively Keep Silverlon dressing in place until follow-up Follow-up at [facility] orth[facility] as previously scheduled With questions contact our clinic at [phone] Total Time Total Time Spent Total Time Spent (In Minutes): 20 mins Discharge Plan Discharge Items Patient Disposition: Home - Home Health Services Reason For Visit: Left Hip Degenerative Joint Disease Discharge Diagnosis: Left Hip DJD Activity: As commented below Lifting: None Bathing: Keep incision dry Bathing Comment: may shower tomorrow Sexual Activity: Wait until after follow-up appointment Exercise/Sports: Wait until after follow-up appointment Driving/Machine Use: No driving until cleared by energy specialist Weightbearing: Left weightbearing Weightbearing Comment: as tolerated with walker assistance Non-emergency contact: Surgeon Call non-emergency contact if: you have any medication questions, your pain is not controlled, your temperature is above 101.5, your wound has increased drainage and your wound pain has increased Follow-up/Referrals: Solis Milton PA-C [Physician Options Trader] - 02/22/23 1:30 pm Yokasta Batista DO [Outside Practitioners] - Diet: Regular Ambulatory Orders: Prothrombin Time INR (Routine) Timeframe: 20230123 Location: Determined by Patient Ordered By: Elis Gregory Attending Provider Instructions: Post-operative Instructions Dear Patient and Family/Friends, Before you are discharged from the hospital, it is important to know what to expect when you get home after surgery. To that end, we have created this sheet of discharge instructions which covers many commonly asked questions. Make sure you go through this sheet in its entirety with your nurse before you are discharged. Please note that we will go over the specifics of your surgery and recovery when you return for your first post-operative visit. Sincerely, Dr. Gray Medications 1. Oxycodone 5 mg tablet: Take 1-2 tabs every 4-6 hours as needed for pain control. 2. Cephalexin 500 mg tablet: Take 1 tablet 3 times daily for the first 5 days postoperatively 3. Aspirin 81 mg tablet: Take 1 tab twice daily for the first 30 days postoperatively 4. Naproxen 500 mg tablet: Take 1 tablet twice daily for the first 30 days postoperatively 5. Zofran 4 mg tablet: Take 1 tablet every 8 hours as needed for nausea relief Pain Expect to be in a fair amount of pain after surgery. Remember, our goal is not to eliminate your pain, but to make it tolerable. It is a good idea to stay ahead of your pain by taking the medications you were prescribed once you get home. Typically, the pain starts improving 3-7 days after surgery. You should start weaning off the narcotic pain medication (oxycodone, hydrocodone, hydromorphone, morphine) as soon as your pain improves. Please call our office if your pain is not adequately controlled. Ice Ice your operative site at least 5 times a day for 15-30 minutes at a time. Make sure you have a thin cloth between the ice or cooling unit and your skin to prevent garibay bite. This is especially important if you received a nerve block. Continue icing your operative site for the first 5-7 days after surgery, then as needed. Diet/Nausea/Vomiting Start by drinking clear liquids and eating crackers. If you can tolerate this, then you may resume your normal diet. If you feel nauseated or vomit, take Zofran/ondansetron (if prescribed). Please call our office if you have intractable nausea or vomiting, or, if after hours, you may go to the Emergency Room for help. Constipation Constipation is a common side effect of narcotic pain medication. If you have not had a bowel movement within 2 days after surgery, we recommend purchasing an over the counter laxative such as Milk of Magnesia, Dulcolax, or Miralax from a local pharmacy, and taking it as instructed. Call our clinic if any questions. Nerve block The anesthesia team sometimes places a nerve block to help with post-operative pain control. This results in significant numbness and inability to move the extremity. The nerve block usually wears off in 8-12 hours, but sometimes can last up to 24 hours. Please call our office if you are still unable to move your extremity after 24 hours, unless you received a pain pump to take home. Nerve blocks typically wear off quickly, so start taking pain medication as soon as you start feeling soreness near your surgical site. Weight bearing and Range of Motion. Do not bear any weight through your operative extremity immediately after surgery. If you had upper extremity surgery, do not lift anything with that arm. If you are in a knee brace, keep it locked in place until your follow-up. We will discuss your weight bearing, range of motion, and lifting restrictions in detail at your first post-operative appointment. Continuous Passive Motion (CPM) Machine If you were prescribed a CPM machine, it will start after your first post- operative appointment, at which time we will give you instructions on the range of motion settings and duration of treatment Physical therapy You will be given a prescription for physical therapy or occupational therapy at your first post-operative appointment. Typically, patients start therapy within 1 week of surgery Wound care and showering We will inspect your wound at your first post-operative visit, and may do a dr mcdonald change at that time. Most patients will be in a water-proof dressing that is removed 14 days after surgery. It is normal to see some dried blood on the dressing. Do not remove your dressing, paper strips or sutures yourself unless you are given permission. Showering is allowed the day after surgery. Do not scrub or remove any dressings. The wound should not be submerged underwater (i.e. in a bathtub or pool) until 4 weeks after surgery PER stockings If you were given white stockings, these are to be worn at all times except to shower (on both legs) for the first 2 weeks after surgery. Driving You may not drive while taking narcotic pain medication or while in a cast, splint, sling or brace. You, the patient, need to make the final determination about when you are safe to drive, however, the earliest you may consider driving after surgery is below: Hand/Wrist/Elbow Surgery: 3 days Shoulder Surgery: 2 weeks Hip,/Knee/Ankle Surgery: 4 weeks Fracture repair: 6 weeks Return to Work Your return to work depends on what surgery was done and what type of work you do. Please bring any paperwork your employer needs completed to your first post-operative visit. Also, bring a description of your job duties, as this helps us to understand what risks you may face at work. Travel Avoid long distance travel (greater than 1 hour) in airplanes and cars for the first 6 weeks after surgery. If you must travel, you need to have a Doppler ultrasound done before you travel to rule out a blood clot in your legs. Follow-up You should have a follow-up appointment already scheduled 1-2 days after surgery. If not, please contact our office to make this appointment before you leave the hospital. When to call the office It is normal to have swelling and bruising in the limb that was operated on. This will improve with time. It is also normal to have fevers for the first 2 days after surgery. Reasons you should call your doctor include: Uncontrolled pain; Nausea, vomiting, or constipation that does not improve with medication; Fevers over 101.5, chills, sweats; Drainage or bleeding from the wound; Foul odor; Spreading areas of redness; Any other concerns Pending Studies at Discharge: No Stand-Alone Forms: [facility] Medications and DC Order Prescriptions: Continued lamotrigine [Lamictal] 150 mg Tablet 150 mg PO QAM citalopram 40 mg Tablet 40 mg PO QAM levothyroxine 50 mcg Tablet 50 mcg PO QAM amlodipine 2.5 mg tablet 2.5 mg PO QAM Admission Data Admit Date/Time: 02/07/23 08:54 Attending Provider: Jai Gray Admit Provider: Jai Gray Primary Care Provider: Supriya Brower Other Providers: [facility]
== END 2023-02-08 12:02 | disposition home health service (06) ==
LOC: ASU 05:06 → 3E 05:06

== ENCOUNTER 2023-05-30 07:07 | Observation (INO) ==
--- NOTE | 2023-05-08 16:10 | History & Physical Report ---
Date of Service May 08, 2023 Assessment & Plan (1) Osteoarthritis of right hip: Plan: PRE-OP Diagnosis: Right hip osteoarthritis Planned Procedure: Right total hip arthroplasty Plan: Patient is scheduled to undergo this procedure at the [facility] with a 23-hour observation admission with Dr. Gray on May. Risks and complications of the procedure such as: Infection, bleeding, pain, scarring, nerve blood vessel damage, weakness, wound problems, stiffness, incomplete relief of symptoms, hardware failure, hardware loosening, wear, fracture, tendon or ligament injury, dislocation, leg length inequality, blood clots, Embolism, heart attack, stroke and were explained to the patient at her visit today. Informed consent to perform the procedure was obtained. Patient also understands risks of proceeding with surgical intervention during the COVID-19 pandemic. Currently she is asymptomatic and has not been in contact with anyone positive for the virus recently. Need to meet with anesthesia due to her recent left total hip arthroplasty. However, we will need an updated CBC with differential (performed at [facility] on May 06), complete metabolic panel, PT/INR, blood type and screen, urinalysis, urine culture and sensitivity, and a nasal culture for MRSA. Her EKG is up-to-date. Patient will also need preoperative medical clearance from their primary care provider. She was seen yesterday. A clearance form was also sent to her computer graphic designer Dr. Kent and she has been cleared and a note is in her chart. Patient states that she plans on doing in-home physical therapy for the first 1 to 2 weeks postoperatively with [facility]. Patient states that she will most likely elect to do outpatient physical therapy at our PT clinic. Patient has a walker, raised toilet seat, shower chair and a hip kit. During today's visit we reviewed the total hip packet as well as precautions. We discussed discharge planning from the hospital. I advised the patient that upon discharge from hospital we will prescribe a narcotic pain medication and anti-inflammatory. Patient will also be on an 81 mg aspirin twice daily for blood clot prevention. Patient will be scheduled for 2-week postoperative follow-up visit with myself on June 12. At that visit we will Provide the patient with an order for outpatient physical therapy and rehab protocol. This chart was completed utilizing [employer] voice recognition software. Grammatical errors, random word insertions, pronoun errors, and in complete sentences are an occasional consequence of the system. Any questions or concerns about the content, text, or information contained within the body of this dictation should be addressed directly to the physician for clarification. History of Present Illness Chief Complaint: Chief Complaint: Right hip pain Primary Care Provider: Supriya Brower MD History of Present Illness (including history relevant to procedure): This 68-year-old female presents to the clinic today for her preoperative history and physical. Patient states that she had her left hip replaced in January which she is doing well. However she has noticed an increase in pain of her right hip which is now affecting her ability to ambulate. She has tried to work on this and physical therapy but states that it seems to exacerbate the pain. She has also tried the use of oral nonsteroidal agents without any significant relief of her pain. She is elected to proceed with surgical intervention at this time. Review Of Systems: A 12 point review of systems is performed and is unremarkable except for those things stated in the HPI and past medical history. Past Medical History: Problems: Pre-op exam Arthritis of left hip Thyroid disease Left hamstring muscle strain Hip pain Knee pain Anxiety/depression Procedure History Procedure Procedure Date Comments foot Left total hip arthroplasty Tubal ligation Stapedectomy bilateral ears Sinus surgery - left Allergies and Sensitivities: shellfish sulfADIAZINE Current Home Meds: (Last Updated 05/07 14:33) amLODIPine (amLODIPine 2.5 mg oral tablet) TAKE ONE TABLET BY MOUTH EVERY MORNING citalopram (citalopram 40 mg oral tablet) 40 mg PO Daily ezetimibe (ezetimibe 10 mg oral tablet) laMOTRIGine (lamotrigine 150 mg oral tablet) 150 mg PO Daily levothyroxine (levothyroxine 25 mcg (0.025 mg) oral tablet) 25 mcg PO Daily naproxen (naproxen 500 mg oral tablet) 500 mg PO bid PRN: as needed for pain Initial Wt: 05/07 74.2 kg 163 lb Allergies Allergy/AdvReac Type Severity Reaction Status Date / Time red dye Allergy Rash Verified 02/07/23 05:41 shellfish derived Allergy Rash Verified 02/07/23 05:41 Sulfa (Sulfonamide Allergy Rash Verified 02/07/23 05:41 Antibiotics) Home Medications Medication Instructions Recorded Confirmed Type citalopram 40 mg tablet 40 mg PO QAM 03/29/21 02/07/23 History lamotrigine 150 mg tablet 150 mg PO QAM 03/29/21 02/07/23 History (Lamictal) levothyroxine 50 mcg tablet 50 mcg PO QAM 03/29/21 02/07/23 History amlodipine 2.5 mg tablet 2.5 mg PO QAM 01/15/23 02/07/23 History Past Med/Surg History Medical History CAD (coronary artery disease) mild nonobstructive CAD History of blood transfusion 7 y/o during tonsillectomy Slow to wake up after anesthesia denies extended intubation or re-intubation Recovering alcoholic quit drinking 6 years ago Hypothyroidism Hearing deficit BL [place] Otosclerosis Depression with anxiety Bipolar disorder HTN (hypertension) controlled, stable per pt Former smoker Surgical History History of tonsillectomy History of toe surgery cyst removal great toe left History of tubal ligation History of sinus surgery History of colonoscopy History of ear surgery History of cardiac catheterization approx 2 years ago at [place] - no stents Social History Smoking Status: Former smoker Second Hand Exposure: No; Do You Dip or Chew Tobacco: No; Hx Alcohol Use: No (recovering alcoholic) Hx Substance Use: No Preferred Language: Honduran Communication Ability: Effective Pneumatic Riveter Required: No Beliefs That Will Affect Care: None Current Living Situation: Spouse Feels Safe at Home: Yes Assistive Devices: Cane, Glasses and Hearing Aid - Bilateral Review of Systems All systems reviewed & are unremarkable except as noted in Subjective Physical Exam Physical Exam: Physical Exam: (relevant to the procedure, including heart and lung evaluation) General: Alert and oriented x3 with proper grooming and hygiene Eyes: Pupils are equal and reactive to light with accommodation. Extraocular movements are intact Throat: Posterior oropharynx clear with absence of edema, erythema or exudate. Dentition is appropriate Cardiac: Regular rate and rhythm with no murmurs or gallops appreciated Lungs: Clear to auscultation throughout with no wheezing, rales or rhonchi Abdomen: Mildly obese, nondistended, nontender with NABS Extremities: Right hip; flexion is limited to 90 degrees, internal rotation to 0 degrees and external rotation to 50 degrees. Patient has a positive straight leg raise test positive Stinchfield test and positive logroll test. She ex periences tenderness to palpation in the groin area. She is neurovascular intact. Neuro: Cranial nerves II through XII are intact no motor or sensory deficit Skin: Normal in appearance with no open skin areas or discharge Results & Data Diagnostic Findings Studies (relevant to the procedure): As of the patient's right hip show end- stage osteoarthritis with [id number] contact and osteophyte formation
--- NOTE | 2023-05-22 13:33 | Anesthesiology Consultation ---
Date of Service May 22, 2023 Assessment & Plan (1) Encounter for pre-operative examination: - Infectious disease screening: Per assessment on 05/22/23: No known infectious disease contacts. Spoke with patient via phone for clarification 05/22/23- she has chronic, mild rhinorrhea r/t allergies (unchanged from baseline). Patient denies any other infectious-related symptoms/feeling well. Patient advised to contact PAT/surgeon if development of symptoms outside of her baseline prior to surgery. - S/P Left SAVANNAH (02/07/23): SAB at [facility]. No issues noted per post-op anesthesia progress note. - Cardiology note (03/26/23): "No cardiac contraindication to surgery" - PCP note (05/06/23): "Yes" medically cleared for surgery - Outpatient joint assessment: Pt currently scheduled for inpatient pathway. If surgeon requests review for outpatient joint pathway, patient is an acceptable candidate for outpatient joint program from anesthesia standpoint pending surgeon's office assessment that patient is motivated, has good support and completes Same Day Joint Program preop requirements. Chart Review Chart Review: Acceptable Risk for Surgery and Patient NOT seen in Pre Admission Testing History Surgery Operation Date: 05/30/23 08:15 Proposed Procedures p Right Total Hip Arthroplasty - Jai Gray MD Height/Weight Height: 5 ft 3.5 in Weight: 78.018 kg Allergies Allergy/AdvReac Type Severity Reaction Status Date / Time shellfish derived Allergy Severe Swelling Verified 05/22/23 09:48 of Lip/Tongue/Throat Sulfa (Sulfonamide Allergy Unknown Rash Verified 05/22/23 09:48 Antibiotics) red dye Allergy Rash Verified 05/22/23 09:48 Medications Home Medications Medication Instructions Recorded Confirmed Last Taken citalopram 40 mg tablet 40 mg PO QAM 03/29/21 05/22/23 02/07/23 04:30 lamotrigine 150 mg tablet 150 mg PO QAM 03/29/21 05/22/23 02/07/23 04:30 (Lamictal) levothyroxine 50 mcg tablet 50 mcg PO QAM 03/29/21 05/22/23 02/07/23 04:30 amlodipine 2.5 mg tablet 2.5 mg PO QAM 01/15/23 05/22/23 02/07/23 04:30 aspirin 81 mg chewable tablet 81 mg PO BID 05/22/23 05/22/23 Unknown ezetimibe 10 mg tablet 10 mg PO QAM 05/22/23 05/22/23 Unknown multivitamin 1 tab PO QAM 05/22/23 05/22/23 Unknown Past Medical History Medical History Mild emphysema History of COVID-19 x2, 2021, mild symptoms CAD (coronary artery disease) mild nonobstructive CAD History of blood transfusion 7 y/o during tonsillectomy Hypothyroidism Hearing deficit [place] Otosclerosis Depression with anxiety Bipolar disorder HTN (hypertension) Past Surgical History Surgical History Slow to wake up after anesthesia + fatigue after colonoscopy History of total hip arthroplasty left 01/2023 History of tonsillectomy History of toe surgery cyst removal great toe left History of tubal ligation History of sinus surgery History of colonoscopy History of ear surgery History of cardiac catheterization 2020 ([place])- no stents Social History Smoking Status: Former smoker Do You Dip or Chew Tobacco: No Smoking End Date: 07/2019 Hx Alcohol Use: No (Recovering alcoholic per records- Quit drinking 6 years ago) Hx Substance Use: No substance use type: does not use Testing Laboratory Results 05/06/23 WBC 4.68 H/H 13.2/41.1 PLATELETS 288 TSH 3.72 05/13/23 SODIUM 139 POTASSIUM 4.1 CHLORIDE 103 CO2 31 BUN 19 CREATININE 0.74 GLUCOSE 93 PT 10.9 INR 1.0 UA negative Electrocardiogram Date: 01/16/23 NSR, rate 76 bpm Septal infarct, age undetermined T wave abnormality, consider anterior ischemia No significant change vs 03/22/21 EKG Stress Test Date: 03/24/21 Exercise MPHR 86% METS 8.6 Indeterminate for inducible ischemia Ischemic EKG changes with greater than [address] segment elevations in the inferior and anterior leads at peak HR No inducible wall motion abnormalities on imaging EF 55-60% Grade II diastolic dysfunction No significant valvular pathology Cardiac Catheterization Date: 03/29/21 Coronary angiography: Catheters long 6 Algerian glide radial sheath, 5 Algerian [place] Left main: Left main is of normal caliber with mild physiologic taper at its origin and no calcification or obstruction Left anterior descending: Type II vessel which gives rise to 2 small diagonal branches in its proximal and 1 moderate size diagonal branch in its midportion. The apical segment of the left anterior descending is thin in caliber. The vessel has mild luminal irregularities Ramus intermedius: Large long trifurcating vessel without obstruction Left circumflex: Moderate size vessel, nondominant. It gives rise to a single obtuse marginal and single posterior lateral branch. Vessels are thin in caliber but without obstruction Right coronary artery: Moderately large dominant vessel. It gives rise to a sinoatrial branch at its origin, and two small right ventricular branches in its midportion. At the AV groove it gives rise to a long posterior descending artery along the AV groove a small first posterior ventricular branch and a long terminal posterior ventricular branch. Within the right coronary artery there is mild luminal irregularities with a focal 30% narrowing at the acute margin with mild ectasia Other Testing CT chest Date: 04/09/22 Mild emphysema. Mild biapical pleural-parenchymal scarring. Mild coronary art cj calcification. Small hiatal hernia. No suspicious lung nodule identified. 2 mm nodule in the right lower lobe.
[~2023-05-30 07:07] MED LIST changes: +ACETAMINOPHEN 500 MG TAB PO SCH; -ATV1 PO; +BUPIVACAINE 0.5 % 5 MG/1 ML PF 10ML VIAL ONE; -CLX20; +CeleBREX 200 MG CAP PO SCH; +FAMOTIDINE 20 MG TAB PO SCH; +LR 500ML BOLUS, THEN 15ML/HR IV SCH; +LR 60ML/HR IV SCH; +ROPIVACAINE 0.5% HCL/PF 150 MG, BUPIVACAINE 0.75% MPF 20 ML, EPINEPHrine 0.15 MG, Ketor... INFIL SCH; +Scopolamine 1 MG TDSY TD SCH; +TRANEXAMIC ACID 1,000 MG **IV Intra-op IV SCH; +TRANEXAMIC ACID 1,000 MG **IV Pre-op IV SCH; +ceFAZolin 2000MG 2,000 MG/15 ML SYR IV SCH; +dexAMETHasone 4 MG TAB PO SCH; +traMADol HCL 50 MG TABLET PO SCH
[2023-05-30] MEDS ORDERED: fentaNYL citrate PF 100 MCG/2 ML VIAL IV PRN (07:36)
[2023-05-30] MEDS ORDERED: ePHEDrine sulfate 50 MG/ML AMP IV PRN (07:36)
[2023-05-30] MEDS ORDERED: ATROPINE SULFATE 0.1 MG/ML 10ML SYR IV PRN (07:36)
[2023-05-30] MEDS ORDERED: ONDANSETRON INJ 2 MG/ML 2 ML VIAL IV PRN ×2 (07:36→10:18)
[2023-05-30] MEDS ORDERED: MIDAZOLAM HCL 1 MG/ML 2ML VIAL ONE (07:39)
[2023-05-30] MEDS ORDERED: ONDANSETRON INJ 2 MG/ML 2 ML VIAL ONE (07:39)
[2023-05-30] MEDS ORDERED: LIDOCAINE 2% 2 ML VIAL/AMP(20MG/ML) INFIL ONE (07:39)
[2023-05-30] MEDS ORDERED: PROPOFOL IV EMULSION 10 MG/ML 20 ML VIAL IV ONE (07:39)
--- NOTE | 2023-05-30 07:54 | History & Physical Bridge Note ---
Date of Service May 30, 2023 History & Physical Bridge Note I have examined the patient, reviewed the History & Physical and in the interval since the performance of the History & Physical I have noted the following changes of clinical significance: no changes noted
[2023-05-30] MEDS ORDERED: ORTHO JOINT ANESTHETIC ONE (07:58)
[2023-05-30] MEDS ORDERED: ePHEDrine sulfate 50 MG/5 ML SYR ONE (10:07)
[2023-05-30] MEDS ORDERED: KETOROLAC 30 MG/ML VIAL ONE (10:07)
--- NOTE | 2023-05-30 10:11 | Operative Report ---
Post Operative Report Pre & Post Diagnosis Operation Date: 05/30/23 08:15 Pre-Op Diagnosis: Right Hip Osteoarthritis Post-Op Diagnosis: Right Hip Osteoarthritis I identified the patient and participated in the time-out.: Yes Procedure Operation Date: 05/30/23 08:15 Actual Procedures p Right Total Hip Arthroplasty(Right) - Jai Gray MD Surgeon Jai Gray MD Freezer Laboratory Technician GERSON Milton PA-C. No resident or fellow was available to assist. Estimated Blood Loss 100 Findings Consistent with Post-Op Diagnosis Specimens Right femoral head Anesthesia Type Spinal MAC Complications none Disposition Disposition: Recovery Room Indications 68-year-old female with right hip osteoarthritis refractory to conservative management. X-rays demonstrate joint space narrowing subchondral sclerosis and marginal osteophyte formation. She has previously undergone a left total hip arthroplasty by myself with a good result. She desires to have the same operation performed on the right side. I reviewed the risks and benefits of surgery, alternatives to surgery, and expected outcomes. After reviewing all these she elected to proceed with surgery. All questions were answered. Informed consent was signed. Description of Procedure Patient was identified in the preoperative holding area where the surgical site, right hip, was marked. A spinal anesthetic was placed, then the patient was brought back to the main operating room, placed in the operating table and moved into the lateral decubitus position. Axillary roll was placed. All bony prominences were padded. Perioperative antibiotics and tranexamic acid 1 gram IV were administered. The operative extremity was prepped and draped in the normal sterile fashion. Prior to incision a multidisciplinary timeout was called. All in the room were in agreement. We began by making an incision for a posterior approach to the hip. We dissected down through subcutaneous tissues to the level of the fascia. The fascia was incised in line with the incision. Charnley bow was placed. Fatty tissue was reflected posteriorly off the back of the greater trochanter to expose the piriformis and short external rotators of the hip. Quadratus femoris was taken off the femur subperiosteally. The piriformis and short external rotators were dissected off the posterior aspect of the hip. A box cut was made in the capsule. Inferior hip capsule was released off the femur. The femoral head was dislocated. The femoral neck cut was made at our preoperative template. The acetabulum was then exposed. The labrum was sharply excised. Contents of the cotyloid fossa were removed with electrocautery. We then began reaming at a size 8 mm less than our preoperative template. We reamed up by [address] the way up to a size 50 mm cup. This gave us good bleeding cancellus bone circumferentially. The acetabulum was then irrigated out and dried. The real [place] Gription cup was then impacted down into position with 45 degrees of lateral opening and 25 degrees of anteversion. A single cancellous bone screw was placed up into the ilium. Excellent fixation was obtained. A neutral trial liner for a 32 mm fe moral head was then placed. Next we turned our attention to the femur. The lateral neck was removed with a box osteotome. Intramedullary guide was used to establish the intramedullary canal. We then broached all the way up to a size 3. We began trialing with a standard offset neck and a +5 head. Hip was reduced. Leg lengths were nearly symmetric, perhaps a millimeter to less than the other side. The hip was stable in extension and external rotation, and stable in the sleeper position. At 90 degrees of hip flexion the hip could be internally rotated 40 degrees before levering out of the cup. I wanted to add another couple millimeters the leg lengths and get a little bit better stability, therefore the hip was dislocated and the acetabular trial was exchanged for a +4 face changing liner. The hip was then reduced again using the same standard offset neck and head. Now her leg lengths were symmetric. Still was stable in extension and external rotation. At 90 degrees hip flexion she cannot be internally rotated 55 degrees before levering out of the acetabulum. I was very happy with this stability exam, therefore the femoral trial was removed and the the acetabulum was re- exposed, and the trial liner was removed. [place] hole eliminator screw was placed. A +4, 10 degree face changing Altrx polyethylene liner for a 32 mm femoral head was then impacted into the shell. The locking mechanism was checked to ensure that it had engaged which it had. The femur was re-exposed. The femoral canal was irrigated and dried. The real size 3 standard offset Actis femoral stem was opened up. This was impacted down into position. The 32 mm ceramic femoral head with 5 mm offset was opened up and gently impacted down onto the trunnion. The hip was atraumatically reduced. Another 1 gram of IV tranexamic acid was started prior to closure. The wound was irrigated out with sterile Betadine solution. The periarticular injection cocktail was then placed. The short external rotators, piriformis, and posterior capsule were repaired through drill holes in the greater trochanter using #2 Vicryl. The fascia was run with a looped #1 PDS. The subcutaneous layer was closed with #1 PDS. The dermal layer was closed with 2-0 Vicryl. Zip line was used for the skin followed by a Silverlon dressing. A compressive dressing was then placed. The patient was then rolled supine. Leg lengths were rechecked and were symmetric. An abduction pillow was placed. Sedation was lifted and the patient was transferred to the recovery room in stable condition. Summary of implants: Depuy [place] Gription Acetabular Shell Sector Cup, 50 mm outer diameter [place] Cancellous bone screw, 6.5 x 40 mm [place] hole eliminator [place] Altrx Polyethylene +4, 10 degree face changing liner, with a 32 mm inner diameter DePuy Actis collared cementless Femoral stem, 12/14 taper, size 3 standard offset 32 mm ceramic femoral head with +5 offset Postoperative course: Patient will be admitted overnight from the recovery room. Patient will be weightbearing as tolerated with posterior hip precautions. Aspirin for DVT prophylaxis I attest to the content of the Intraoperative Record and any orders documented therein. Any exceptions are noted below.
[2023-05-30] MEDS ORDERED: METOCLOPRAMIDE HCL INJ 5 MG/ML 2 ML VIAL IV PRN (10:18)
[2023-05-30] MEDS ORDERED: bisacodyL 10 MG SUPP PR PRN (10:18)
[2023-05-30] MEDS ORDERED: NALOXONE HCL 0.4 MG/1 ML VIAL/CARP IV PRN (10:18)
[2023-05-30] MEDS ORDERED: MAGNESIUM HYDROXIDE SUSP 30 ML UDC PO PRN (10:18)
[2023-05-30] MEDS ORDERED: diphenhydrAMINE 50 MG/ML VIAL IV PRN (10:18)
[2023-05-30] MEDS ORDERED: ALUMINUM/MAGNESIUM SUSP 30 ML UDC PO PRN (10:18)
--- NOTE | 2023-05-30 10:18 | Operative Report ---
Post Operative Report Pre & Post Diagnosis Operation Date: 05/30/23 08:15 Pre-Op Diagnosis: Right Hip Osteoarthritis Post-Op Diagnosis: Right Hip Osteoarthritis I identified the patient and participated in the time-out.: Yes Procedure Operation Date: 05/30/23 08:15 Actual Procedures p Right Total Hip Arthroplasty(Right) - Jai Gray MD Surgeon Jai Gray MD Blindstitch Machine Operator GERSON Milton PA-C. No resident or fellow was available to assist. Estimated Blood Loss 100 Findings Consistent with Post-Op Diagnosis Specimens femoral head Description of Procedure I was present during the entire case assisting with positioning, prepping, draping, wound retraction, wound closure, dressing and abduction pillow placement. No fellow present. Please see Dr. Gray procedure note for specifics of the case. I attest to the content of the Intraoperative Record and any orders documented therein. Any exceptions are noted below.
--- NOTE | 2023-05-30 10:59 | XRay Report ---
XR pelvis 1-2V routine CLINICAL HISTORY: Postoperative evaluation. COMPARISON: Pelvis and hip radiographs May 07, 2023. FINDINGS: Alignment of the total right hip arthroplasty is in anatomic. There is no periprosthetic f racture or unexpected radiopaque foreign body. Left hip arthroplasty is again noted. IMPRESSION: Expected findings following total right hip arthroplasty. ACT 112: Negative or not required by law. Electronically signed by: Braxton Gonzalez M.D. 05/30/2023 10:56 AM
--- NOTE | 2023-05-30 11:32 | Anesthesiology Progress Note ---
Date of Service May 30, 2023 Anesthesia Post Procedure Vital Signs Vital Signs: Temp Pulse Pulse Resp BP Pulse Ox O2 Del Method 05/30/23 11:10 97.5 F L 65 15 99/57 L 96 Room Air 05/30/23 10:55 63 14 101/57 L 96 Room Air 05/30/23 10:45 67 17 93/57 L 95 Room Air 05/30/23 10:35 60 12 94/47 L 99 Room Air 05/30/23 10:25 73 18 101/55 L 97 Room Air 05/30/23 10:16 96.8 F L 71 17 99/56 L 94 Room Air 05/30/23 07:27 97.9 F 64 20 106/68 93 Room Air Transfer of Care Handoff Completed per policy Notes Mental Status: alert / awake / arousable and participated in evaluation Patient Amnestic to Procedure: Yes Nausea / Vomiting: adequately controlled Pain: adequately controlled Airway Patency, RR, SpO2: stable & adequate BP & HR: stable & adequate Hydration State: stable & adequate Neuraxial Anesthesia: was administered and sensory block is resolving Anesthetic Complications: no major complications apparent and Pt Satisfied with anesthetic care
[2023-05-30] MEDS: SODIUM CHLORIDE 0.9% 1,000 ML IV SCH ×2 (12:13→20:59)
[2023-05-30] MEDS: KETOROLAC TROMETHAMINE 15 MG/ML VIAL IV SCH ×3 (12:13→23:23)
[2023-05-30] MEDS: ACETAMINOPHEN 500 MG TAB PO SCH ×2 (13:12→20:57)
[2023-05-30] MEDS: oxyCODONE HCL IR 5 MG TAB (IMMEDIATE RELEASE) PO PRN ×2 (13:16→18:42)
[2023-05-30] MEDS ORDERED: TRANEXAMIC ACID / 0.7% NACL 1,000 MG/100 ML BAG IV SCH (16:30)
[2023-05-30] MEDS: Scopolamine CHECK PATCH PLACEMENT SCH ×2 (16:42→23:23)
[2023-05-30] MEDS: ceFAZolin 2000MG 2,000 MG/15 ML SYR IV SCH ×2 (16:43→23:23)
[2023-05-30] MEDS: DOCUSATE SODIUM 100 MG CAP PO SCH (20:57)
[2023-05-30] MEDS ORDERED: ASPIRIN 81 MG ECTAB PO SCH (21:00)
[2023-05-30] MEDS ORDERED: SENNA 8.6 MG TAB PO SCH (21:00)
[2023-05-30] MEDS: HYDROmorphone INJ 1 MG/ML SYRINGE IV PRN (22:22)
[2023-05-31] MEDS: HYDROmorphone INJ 1 MG/ML SYRINGE IV PRN (02:29)
[2023-05-31] MEDS: KETOROLAC TROMETHAMINE 15 MG/ML VIAL IV SCH (05:39)
[2023-05-31] MEDS: ACETAMINOPHEN 500 MG TAB PO SCH (05:40)
[2023-05-31] MEDS ORDERED: LEVOTHYROXINE SODIUM 50 MCG TABLET PO SCH (06:30)
[2023-05-31 07:03] LABS: Basophils # (auto) 0.01 K/uL (0.00-0.20); Basophils % (auto) 0.1 %; Eosinophils # (auto) 0.01 K/uL (0.00-0.50); Eosinophils % (auto) 0.1 %; Hematocrit (blood only) 28.8 % (37.0-47.0); Hemoglobin 9.1 g/dl (12.0-16.0); Immature Granulocytes # (auto) 0.04 K/uL (0.01-0.20); Immature Granulocytes % (auto) 0.5 %; Lymphocytes # (auto) 1.05 K/uL (1.20-3.40); Lymphocytes % (auto) 13.1 %; Mean Corpuscular Hemoglobin 26.6 pg (25.0-34.0); Mean Corpuscular Hgb Conc 31.6 g/dL (32.0-36.0); Mean Corpuscular Volume 84.2 fL (80.0-100.0); Mean Platelet Volume 10.6 fL (9.4-12.4); Monocytes % (auto) 7.5 %; Neutrophils # (auto) 6.31 K/uL (1.40-6.50); Neutrophils % (auto) 78.7 %; Platelet Count 218 K/uL (130-400); RDW Coefficient of Variation 13.4 % (11.5-14.5); RDW Standard Deviation 41.5 fL (36.4-46.3); Red Blood Count 3.42 M/uL (4.20-5.40); White Blood Count 8.02 K/ul (4.8-10.8)
[2023-05-31 07:31] LABS: BUN Creatinine Ratio 27.4 (10-20); Calcium 8.7 mg/dl (8.6-10.3); Creatinine Clr Calc Pharmacy 87.3 ml/min; Est GFR (African American) 108.1 ml/min; Est GFR (Non-African American) 93.3 ml/min; Potassium 4.6 mmol/L (3.5-5.1)
[2023-05-31] MEDS ORDERED: dexAMETHasone 4 MG TAB PO SCH (08:00)
[2023-05-31] MEDS: oxyCODONE HCL IR 5 MG TAB (IMMEDIATE RELEASE) PO PRN (08:25)
[2023-05-31] MEDS: Scopolamine CHECK PATCH PLACEMENT SCH (08:25)
[2023-05-31] MEDS: DOCUSATE SODIUM 100 MG CAP PO SCH (08:27)
--- NOTE | 2023-05-31 08:49 | Orthopedic Progress Note ---
Date of Service May 31, 2023 Assessment & Plan (1) S/P total hip arthroplasty: Plan: Total hip precautions reviewed Weightbearing as tolerated with walker assistance Keep Silverlon dressing in place until follow-up Abduction pillow use x 6 weeks DVT prophylaxis with aspirin and PER stockings Pain control with p.o. medication Ice with easy wrap Plan is to discharge home later this morning with in-home physical therapy for the first 2 weeks Follow-up at [facility] orthopedics as previously scheduled With questions contact our clinic at [phone] Admission and Anticipated Discharge Date Admission Date: May 30, 2023 Subjective This 68-year-old female is day 1 status post right total hip arthroplasty. She states that her pain is well-controlled with IV pain medication and p.o. analgesics. Patient states that she has been able to transition from her bed to her walker and to the restroom several times without issue. She does state that the pain in her right hip is little more than her left previous surgery on her left hip. Currently she denies chest pain, shortness of breath, fever, chills, sweats, numbness or tingling in her right lower extremity. She also denies nausea, vomiting, diarrhea or difficulty voiding. Review of Systems Review of Systems: All systems reviewed & are unremarkable except as noted in Subjective Physical Exam Physical Exam: Right hip: Outer dressing was removed. Silverlon is clean dry and intact about the place. Patient is able to easily perform active straight leg raise test and actively dorsi and plantarflex her foot without issue. Patient tolerates light passive hip flexion near 90 degrees and has no pain with passive internal or external hip rotation. Logroll test causes no pain. Patient's quad strength is 3+ out of 5. She is neurovascularly intact in the right lower extremity. Results & Data Vital Signs (Past 12 Hours) Vital Signs Temp Pulse Resp BP Pulse Ox O2 Del Method 05/31/23 07:21 36.6 C 59 L 16 91/60 L 92 Room Air 05/31/23 02:00 36.3 C L 55 L 16 99/62 L 95 Room Air Diagnostic Findings Laboratory Results WBC 8.02 K/ul (4.8-10.8) 05/31/23 06:43 RBC 3.42 M/uL (4.20-5.40) L 05/31/23 06:43 Hgb 9.1 g/dl (12.0-16.0) L 05/31/23 06:43 Hct 28.8 % (37.0-47.0) L 05/31/23 06:43 MCV 84.2 fL (80.0-100.0) 12 06:43 MCH 26.6 pg (25.0-34.0) 12 06:43 MCHC 31.6 g/dL (32.0-36.0) L 05/31/23 06:43 RDW Std Deviation 41.5 fL (36.4-46.3) 05/31/23 06:43 RDW Coeff of Renetta 13.4 % (11.5-14.5) 05/31/23 06:43 Plt Count 218 K/uL (130-400) 05/31/23 06:43 MPV 10.6 fL (9.4-12.4) 05/31/23 06:43 Immature Gran % (Auto) 0.5 % 05/31/23 06:43 Neut % (Auto) 78.7 % 05/31/23 06:43 Lymph % (Auto) 13.1 % 05/31/23 06:43 [place] % (Auto) 7.5 % 05/31/23 06:43 Eos % (Auto) 0.1 % 05/31/23 06:43 Baso % (Auto) 0.1 % 05/31/23 06:43 Neut # (Auto) 6.31 K/uL (1.40-6.50) 05/31/23 06:43 Lymph # (Auto) 1.05 K/uL (1.20-3.40) L 05/31/23 06:43 [place] # (Auto) 0.60 K/uL (0.11-0.59) H 05/31/23 06:43 Eos # (Auto) 0.01 K/uL (0.00-0.50) 05/31/23 06:43 Baso # (Auto) 0.01 K/uL (0.00-0.20) 05/31/23 06:43 Immature Gran # (Auto) 0.04 K/uL (0.01-0.20) 05/31/23 06:43 Sodium 138 mmol/L (136-145) 05/31/23 06:43 Potassium 4.6 mmol/L (3.5-5.1) 05/31/23 06:43 Chloride 108 mmol/L (98-107) H 05/31/23 06:43 Carbon Dioxide 27 mmol/L (21-32) 05/31/23 06:43 Anion Gap 3 (3-11) 05/31/23 06:43 BUN 17 mg/dl (6-23) 05/31/23 06:43 Creatinine 0.62 mg/dl (0.6-1.2) 05/31/23 06:43 Est Cr Clr Drug Dosing 87.3 ml/min 05/31/23 06:43 Est GFR ( Amer) 108.1 ml/min 05/31/23 06:43 Est GFR (Non-Af Amer) 93.3 ml/min 05/31/23 06:43 BUN/Creatinine Ratio 27.4 (10-20) H 05/31/23 06:43 Glucose 105 mg/dl (70-99(Fasting)) H 05/31/23 06:43 Calcium 8.7 mg/dl (8.6-10.3) 05/31/23 06:43 Blood Type O Positive 05/30/23 07:24 Antibody Screen NEGATIVE 05/30/23 07:24 Impressions Pelvis X-Ray 05/30/23 10:19 XR pelvis 1-2V routine CLINICAL HISTORY: Postoperative evaluation. COMPARISON: Pelvis and hip radiographs May 07, 2023. FINDINGS: Alignment of the total right hip arthroplasty is in anatomic. There is no periprosthetic fracture or unexpected radiopaque foreign body. Left hip arthroplasty is again noted. IMPRESSION: Expected findings following total right hip arthroplasty. ACT 112: Negative or not required by law. Electronically signed by: Braxton Gonzalez M.D. 05/30/2023 10:56 AM
--- NOTE | 2023-05-31 08:55 | Discharge Summary ---
Date of Service May 31, 2023 Admission HPI Per Admitting Provider History of Present Illness (including history relevant to procedure): This 68-year-old female presents to the clinic today for her preoperative history and physical. Patient states that she had her left hip replaced in January which she is doing well. However she has noticed an increase in pain of her right hip which is now affecting her ability to ambulate. She has tried to work on this and physical therapy but states that it seems to exacerbate the pain. She has also tried the use of oral nonsteroidal agents without any significant relief of her pain. She is elected to proceed with surgical intervention at this time. Review Of Systems: A 12 point review of systems is performed and is unremarkable except for those things stated in the HPI and past medical history. Past Medical History: Problems: Pre-op exam Arthritis of left hip Thyroid disease Left hamstring muscle strain Hip pain Knee pain Anxiety/depression Procedure History Procedure Procedure Date Comments foot Left total hip arthroplasty Tubal ligation Stapedectomy bilateral ears Sinus surgery - left Allergies and Sensitivities: shellfish sulfADIAZINE Current Home Meds: (Last Updated 05/07 14:33) amLODIPine (amLODIPine 2.5 mg oral tablet) TAKE ONE TABLET BY MOUTH EVERY MORNING citalopram (citalopram 40 mg oral tablet) 40 mg PO Daily ezetimibe (ezetimibe 10 mg oral tablet) laMOTRIGine (lamotrigine 150 mg oral tablet) 150 mg PO Daily levothyroxine (levothyroxine 25 mcg (0.025 mg) oral tablet) 25 mcg PO Daily naproxen (naproxen 500 mg oral tablet) 500 mg PO bid PRN: as needed for pain Initial Wt: 05/07 74.2 kg 163 lb Admission Exam Per Admitting Provider Physical Exam: (relevant to the procedure, including heart and lung evaluation) General: Alert and oriented x3 with proper grooming and hygiene Eyes: Pupils are equal and reactive to light with accommodation. Extraocular movements are intact Throat: Posterior oropharynx clear with absence of edema, erythema or exudate. Dentition is appropriate Cardiac: Regular rate and rhythm with no murmurs or gallops appreciated Lungs: Clear to auscultation throughout with no wheezing, rales or rhonchi Abdomen: Mildly obese, nondistended, nontender with NABS Extremities: Right hip; flexion is limited to 90 degrees, internal rotation to 0 degrees and external rotation to 50 degrees. Patient has a positive straight leg raise test positive Stinchfield test and positive logroll test. She experiences tenderness to palpation in the groin area. She is neurovascular intact. Neuro: Cranial nerves II through XII are intact no motor or sensory deficit Skin: Normal in appearance with no open skin areas or discharge Principal Diagnosis Right hip osteoarthritis Discharge Exam Right hip: Outer dressing was removed. Silverlon is clean dry and intact about the place. Patient is able to easily perform active straight leg raise test and actively dorsi and plantarflex her foot without issue. Patient tolerates light passive hip flexion near 90 degrees and has no pain with passive internal or external hip rotation. Logroll test causes no pain. Patient's quad strength is 3+ out of 5. She is neurovascularly intact in the right lower extremity. Discharge Data Allergies Allergy/AdvReac Type Severity Reaction Status Date / Time shellfish derived Allergy Severe Swelling Verified 05/30/23 07:21 of Lip/Tongue/Throat Sulfa (Sulfonamide Allergy Unknown Rash Verified 05/30/23 07:21 Antibiotics) red dye Allergy Rash Verified 05/30/23 07:21 Procedures Performed Operation Date: 05/30/23 08:15 Actual Procedures p Right Total Hip Arthroplasty(Right) - Jai Gray MD Hospital Course (1) S/P total hip arthroplasty: Patient had an uneventful overnight stay following right total hip arthroplasty. She is very pleased with the results of her surgery. She is anticipating going home later this morning and beginning in-home physical therapy with [facility] over the weekend. Total hip precautions reviewed Weightbearing as tolerated with walker assistance Keep Silverlon dressing in place until follow-up Abduction pillow use x 6 weeks DVT prophylaxis with aspirin and PER stockings Pain control with p.o. medication Ice with easy wrap Plan is to discharge home later this morning with in-home physical therapy for the first 2 weeks Follow-up at [facility] orthopedics as previously scheduled With questions contact our clinic at [phone] Total Time Total Time Spent Total Time Spent (In Minutes): 20 minutes Discharge Plan Discharge Items Patient Disposition: Home - Home Health Services Reason For Visit: Right Hip Osteoarthritis Discharge Diagnosis: Right Hip Osteoarthritis Activity: As commented below Lifting: None Bathing: Keep incision dry Bathing Comment: May shower tomorrow Sexual Activity: Wait until after follow-up appointment Exercise/Sports: Wait until after follow-up appointment Driving/Machine Use: No georgina rosenthal cleared by a r specialist Weightbearing: Right weightbearing Weightbearing Comment: as tolerated with walker assistance Non-emergency contact: Surgeon Call non-emergency contact if: you have any medication questions, your pain is not controlled, your temperature is above 101.5, your wound has increased drainage and your wound pain has increased Follow-up/Referrals: Supriya Brower MD [Primary Care Provider] - Diet: Regular Addtl Attending Provider Instructions: Post-operative Instructions Dear Patient and Family/Friends, Before you are discharged from the hospital, it is important to know what to expect when you get home after surgery. To that end, we have created this sheet of discharge instructions which covers many commonly asked questions. Make sure you go through this sheet in its entirety with your nurse before you are discharged. Please note that we will go over the specifics of your surgery and recovery when you return for your first post-operative visit. Sincerely, Dr. Gray Medications 1. Oxycodone 5 mg: take 1-2 tabs every 4-6 hours as need for post operative pain relief. This will be sent to your pharmacy. 2. Diclofenac Sodium 75 mg: take 1 tab twice daily for 30 days post operatively for pain and inflammation relief. This will be sent to your pharmacy with 1 refill. 3. Aspirin 81 mg: resume your twice daily aspirin for blood clot prevention. 4. Extra Strength Tylenol 500 mg: take 2 tabs every 6-8 hours as needed for additional pain relief. Please purchase. Pain Expect to be in a fair amount of pain after surgery. Remember, our goal is not to eliminate your pain, but to make it tolerable. It is a good idea to stay ahead of your pain by taking the medications you were prescribed once you get home. Typically, the pain starts improving 3-7 days after surgery. You should start weaning off the narcotic pain medication (oxycodone, hydrocodone, hydromorphone, morphine) as soon as your pain improves. Please call our office if your pain is not adequately controlled. Ice Ice your operative site at least 5 times a day for 15-30 minutes at a time. Make sure you have a thin cloth between the ice or cooling unit and your skin to prevent garibay bite. This is especially important if you received a nerve block. Continue icing your operative site for the first 5-7 days after surgery, then as needed. Diet/Nausea/Vomiting Start by drinking clear liquids and eating crackers. If you can tolerate this, then you may resume your normal diet. If you feel nauseated or vomit, take Zofran/ondansetron (if prescribed). Please call our office if you have intractable nausea or vomiting, or, if after hours, you may go to the Emergency Room for help. Constipation Constipation is a common side effect of narcotic pain medication. If you have not had a bowel movement within 2 days after surgery, we recommend purchasing an over the counter laxative such as Milk of Magnesia, Dulcolax, or Miralax from a local pharmacy, and taking it as instructed. Call our clinic if any questions. Slings and Braces If you were placed in a sling or brace, it must be worn at all times, including sleep. You may remove your sling or brace for physical therapy, home exercises, and showering. The length of time you will be in your brace and range of motion restrictions depends on what surgery you had; these details will be reviewed at your first post-operative appointment. Nerve block The anesthesia team sometimes places a nerve block to help with post-operative pain control. This results in significant numbness and inability to move the extremity. The nerve block usually wears off in 8-12 hours, but sometimes can last up to 24 hours. Please call our office if you are still unable to move y our extremity after 24 hours, unless you received a pain pump to take home. Nerve blocks typically wear off quickly, so start taking pain medication as soon as you start feeling soreness near your surgical site. Weight bearing and Range of Motion. Do not bear any weight through your operative extremity immediately after surgery. If you had upper extremity surgery, do not lift anything with that arm. If you are in a knee brace, keep it locked in place until your follow-up. We will discuss your weight bearing, range of motion, and lifting restrictions in detail at your first post-operative appointment. Continuous Passive Motion (CPM) Machine If you were prescribed a CPM machine, it will start after your first post- operative appointment, at which time we will give you instructions on the range of motion settings and duration of treatment Physical therapy You will be given a prescription for physical therapy or occupational therapy at your first post-operative appointment. Typically, patients start therapy within 1 week of surgery Wound care and showering We will inspect your wound at your first post-operative visit, and may do a dressing change at that time. Most patients will be in a water-proof dressing that is removed 14 days after surgery. It is normal to see some dried blood on the dressing. Do not remove your dressing, paper strips or sutures yourself unless you are given permission. Showering is allowed the day after surgery. Do not scrub or remove any dressings. The wound should not be submerged underwater (i.e. in a bathtub or pool) until 4 weeks after surgery PER stockings If you were given white stockings, these are to be worn at all times except to shower (on both legs) for the first 2 weeks after surgery. Driving You may not drive while taking narcotic pain medication or while in a cast, spli nt, sling or brace. You, the patient, need to make the final determination about when you are safe to drive, however, the earliest you may consider driving after surgery is below: Hand/Wrist/Elbow Surgery: 3 days Shoulder Surgery: 2 weeks Hip,/Knee/Ankle Surgery: 4 weeks Fracture repair: 6 weeks Return to Work Your return to work depends on what surgery was done and what type of work you do. Please bring any paperwork your employer needs completed to your first post-operative visit. Also, bring a description of your job duties, as this helps us to understand what risks you may face at work. Travel Avoid long distance travel (greater than 1 hour) in airplanes and cars for the first 6 weeks after surgery. If you must travel, you need to have a Doppler ultrasound done before you travel to rule out a blood clot in your legs. Follow-up You should have a follow-up appointment already scheduled 1-2 days after surgery. If not, please contact our office to make this appointment before you leave the hospital. When to call the office It is normal to have swelling and bruising in the limb that was operated on. This will improve with time. It is also normal to have fevers for the first 2 days after surgery. Reasons you should call your doctor include: Uncontrolled pain; Nausea, vomiting, or constipation that does not improve with medication; Fevers over 101.5, chills, sweats; Drainage or bleeding from the wound; Foul odor; Spreading areas of redness; Any other concerns Pending Studies at Discharge: No Stand-Alone Forms: [facility] Medications and DC Order Prescriptions: New acetaminophen [Tylenol Extra Strength] 500 mg Tablet 1,000 mg PO Q8 30 Days Qty: 180 0RF oxycodone 5 mg Tablet 5 - 10 mg PO Q4H MDD ongoing tx PRN (Reason: Post op pain control) Qty: 28 0RF diclofenac sodium 75 mg tablet,delayed release (DR/EC) 75 mg PO BID 30 Days Qty: 60 1RF Continued aspirin 81 mg Tablet,Chewable 81 mg PO BID ezetimibe 10 mg tablet 10 mg PO QAM multivitamin Tablet 1 tab PO QAM lamotrigine [Lamictal] 150 mg Tablet 150 mg PO QAM citalopram 40 mg Tablet 40 mg PO QAM levothyroxine 50 mcg Tablet 50 mcg PO QAM amlodipine 2.5 mg tablet 2.5 mg PO QAM Admission Data Admit Date/Time: 05/30/23 10:19 Attending Provider: Jai Gray Admit Provider: Jai Gray Primary Care Provider: Supriya Brower Other Providers: [facility]
[2023-05-31] MEDS ORDERED: ASPIRIN 81 MG ECTAB PO SCH (09:00)
[2023-05-31] MEDS ORDERED: CITALOPRAM 40 MG TAB PO SCH (09:00)
[2023-05-31] MEDS ORDERED: lamoTRIgine 100 MG TAB PO SCH (09:00)
[2023-05-31] MEDS ORDERED: amLODIPine BESYLATE 5 MG TAB PO SCH (09:00)
[2023-05-31] MEDS ORDERED: NON-FORMULARY MEDICATION (Multivitamin Tablet) PO SCH (09:00)
[2023-05-31] MEDS ORDERED: MULTIVITAMIN TAB PO SCH (09:00)
[2023-05-31] MEDS ORDERED: EZETIMIBE 10 MG TAB PO SCH (09:00)
== END 2023-05-31 11:56 | disposition home health service (06) ==
LOC: 3W 07:07 → ASU 07:07